=== PATIENT | male | born 1955 | race Caucasian/White ===

== ENCOUNTER 2023-08-22 10:55 | Outpatient (OUT) | payer MEDICARE, MEDICAID, SELFPAY ==
[2023-08-22 11:48] LABS: Prostate Specific Antigen Dx 0.24 ng/mL (<=4.00)
== END 2023-08-22 10:56 | disposition home or self-care (01) ==
LOC: LAB 10:55
PROVIDERS: PCP Family Medicine; Visit Provider Urology
DX: N40.1 Benign prostatic hyperplasia with lower urinary tract symptoms (principal)
CPT/HCPCS: 36415; 84153

== ENCOUNTER 2024-02-26 11:55 | Outpatient (OUT) | payer MEDICARE, MEDICAID, SELFPAY ==
--- OUTSIDE RECORDS SUMMARY | 2024-02-26 12:18 | XMS_ITS | CCD ---
Author Organization [facility] Care Team Providers Care Construction Recruiter Name Role Phone SAROJ PINEDA Primary Care Physician MACIE, DR SANCHEZ Attending Unavailable MACIE, DR SANCHEZ Consulting Unavailable RAVI, DR SANCHEZ Admitting Unavailable JUNIOR PERAZA Primary Care Unavailable Edwin FAMILY ADVOCATE-PROPELLER TESTERSaroj Primary Care Provid er SAROJ PINEDA Referring Unavailable SAROJ PINEDA Primary Care Unavailable SAROJ PINEDA Attending Unavailable SAROJ PINEDA Referring Unavailable SAROJ PINEDA Primary Care Unavailable MAINE MORLEY Attending Unavailable SAROJ PINEDA Referring Unavailable SAROJ PINEDA Primary Care Unavailable MAINE MORLEY Attending Unavailable MAINE MORLEY Referring Unavailable SAROJ PINEDA Primary Care Unavailable Raheem RAVI Attending Unavailable SAROJ PINEDA Primary Care Unavailable SAROJ PINEDA Primary Care Unavailable Raheem RAVI Attending Unavailable SAROJ PINEDA Primary Care Unavailable Raheem RAVI Attending Unavailable Allergies Allergy Classification Reported Allergen(s) Allergy Type Date of Onset Reaction(s) Facility (1 source) No Known Medication Allergies; Translations: [No Known Medication Allergies] Propensity to adverse reactions (disorder) [facility] Repository Medications Current Medications Medication Drug Class(es) Dates Sig (Normalized) Sig (Original) acetaminophen 500 mg oral tablet (1 source) Start: 08-30-2022 take 2 tablets by mouth every six hours as needed for pain acetaminophen (TYLENOL EXTRA STRENGTH) 500 mg tablet Take 2 tablets (1,000 mg total) by mouth every 6 (six) hours as needed for pain. 30 tablet 0 08/30/2022 Active aspirin 325 mg delayed release oral tablet (3 sources) Platelet Aggregation Inhibitor, Nonsteroidal Anti-inflammatory Drug Start: 01-18-2021 take 1 tablet by mouth once daily aspirin 325 mg EC tablet Take 1 tablet (325 mg total) by mouth daily. 0 01/18/2021 Active Start: 05-17-2019 aspirin 81 mg Chew Tab mg tab(s), Chewed, Daily, Refills(s) 0 Start Date: 05/17/19 Status: Ordered atorvastatin 20 mg oral tablet (3 sources) HMG-CoA Reductase Inhibitor Start: 06-26-2023 atorvastatin 20 mg T ab Refills(s) 0 Start Date: 08/22/23 Status: Ordered Start: 05-17-2019 take 1 tablet by rick th once daily Lipitor 40 mg Tab 40 mg = 1 tab(s), Oral, Daily, # 30 tab(s), Refills(s) 0 Start Date: 05/17/19 Status: Ordered bacitracin zinc 0.5 unt/mg topical ointment (1 source) Start: 09-02-2022 bacitracin zinc ointment Apply 1 application topically in the morning and 1 application before bedtime. 120 g 0 09/02/2022 Active docusate sodium 100 mg oral capsule (1 source) Start: 06-26-2023 take 1 capsule by mouth in the morning for constipation, then take 1 capsule by mouth at bedtime for constipation docusate sodium (COLACE) 100 mg capsule Indications: Drug-induced constipation Take 1 capsule (100 mg total) by mouth in the morning and 1 capsule (100 mg total) before bedtime. For constipation. 180 capsule 1 06/26/2023 Active ferrous sulfate 325 mg delayed release oral tablet (3 sources) Start: 08-09-2021 take 1 tablet by mouth once daily at breakfast ferrous sulfate 325 (65 FE) mg EC tablet TAKE 1 TABLET BY MOUTH EVERY DAY WITH BREAKFAST 90 tablet 2 12/08/2022 Active finasteride 5 mg oral tablet (3 sources) 5-alpha Reductase Inhibitor Start: 02-09-2024 take 1 tablet by mouth once daily finasteride 5 mg Tab 5 mg = 1 tab(s), Oral, Daily, # 90 tab(s), Refills(s) 3, Pharmacy: [id number], 170, cm, 02/09/24 12:22:00 EDT, Height/Length Dosing, 125, kg, 02/09/24 12:22:00 EDT, Weight Dosing Start Date: 02/09/24 Status: Ordered Start: 08-19-2022 take 1 tablet by rick th once daily finasteride 5 mg Tab 5 mg = 1 tab(s), Oral, Daily, # 90 tab(s), Refills(s) 3, Pharmacy: [id number], 170, cm, 08/19/22 13:33:00 EST, Height/Length Dosing, 124, kg, 08/19/22 13:33:00 EST, Weight Dosing Start Date: 08/19/22 Status: Ordered hydroCHLOROthiazide 25 mg oral tablet (2 sources) Thiazide Diuretic Start: 05-17-2019 take 1 mg by mouth once daily hydrochlorothiazide 25 mg oral tablet mg tab(s), Oral, Daily, Refills(s) 0 Start Date: 05/17/19 Status: Ordered ibuprofen 800 mg oral tablet (2 sources) Nonsteroidal Anti-inflammator y Drug Start: 10-12-2023 take 1 tablet by mouth every twelve hours as needed for pain ibuprofen (MOTRIN) 800 mg tablet Indications: Primary osteoarthritis involving multiple joints TAKE 1 TABLET BY MOUTH EVERY 12 HOURS NEEDED FOR PAIN 180 tablet 1 10/12/2023 Active Start: 03-04-2023 End: 10-12-2023 take 1 tablet by mouth once as needed for pain ibuprofen (MOTRIN) 800 mg tablet Indications: Primary osteoarthritis involving multiple joints TAKE 1 TABLET BY MOUTH EVERY TWELVE HOURS NEEDED FOR PAIN 180 tablet 1 03/04/2023 10/12/2023 Discontinued Levetiracetam (3 sources) Start: 05-17-2019 levetiracetam Refills(s) 0 Start Date: 05/17/19 Status: Ordered take 1 tablet by rick th in the morning, then take 1 tablet by mouth at bedtime levETIRAcetam (KEPPRA) 500 mg tablet Nate e 1 tablet (500 mg total) by mouth in the morning and 1 tablet (500 mg total) before bedtime. 0 Active LORazepam 0.5 mg oral tablet (3 sources) Benzodiazepine Start: 09-19-2021 LORazepam (ATI VAN) 0.5 mg tablet Start: 05-17-2019 take 2 tablets by mo uth three times daily LORazepam 0.5 mg Tab mg tab(s), Oral, TID, Refills(s) 0 Start Date: 05/17/19 Status: Ordered PARoxetine hydrochloride 20 mg oral tablet (3 sources) Serotonin Reuptake Inhibitor Start: 05-17-2019 take 1 tablet by mouth once daily Paxil 20 mg Tab enob tab(s), Oral, Daily, Refills(s) 0 Start Date: 05/17/19 Status: Ordered PHENobarbital 64.8 mg oral tablet (4 sources) Start: 01-17-2021 take 1 tablet by mouth once daily PHENobarbitaL (LUMINAL) 64.8 mg tablet Indications: Other epilepsy without status epilepticus, not intractable ([facility]) Take 1 tablet (64.8 mg total) by mouth nightly. 0 01/17/2021 Active Start: 05-17-2019 take 1 mg by mouth twice daily phenobarbital 32.4 mg oral tablet mg tab(s), Oral, BID, Refills(s) 0 Start Date: 05/17/19 Status: Ordered 24 hr propranolol hydrochloride 60 mg extended release oral capsule (2 sources) beta-Adrenergic Zaina Start: 05-17-2019 take 1 mg by mouth once daily Inderal LA 60 mg Cap-ER mg cap(s), Oral, Daily, Refills(s) 0 Start Date: 05/17/19 Status: Ordered stool softener (2 sources) Start: 08-09-2021 stool softener stool softener Start Date: 08/09/21 Status: Ordered tamsulosin hydrochloride 0.4 mg oral capsule (3 sources) alpha-Adrenergic Zaina Start: 02-09-2024 take 1 capsule by mouth twice daily tamsulosin 0.4 mg Cap 0.4 mg = 1 cap(s), Oral, BID, # 180 cap(s), Refills(s) 3, Pharmacy: [id number], 170, cm, 02/09/24 12:22:00 EDT, Height/Length Dosing, 125, kg, 02/09/24 12:22:00 EDT, Weight Dosing Start Date: 02/09/24 Status: Ordered Start: 08-19-2022 take 1 capsule by mo [facility] twice daily tamsulosin 0.4 mg Cap 0.4 mg = 1 cap(s), Oral, BID, # 180 cap(s), Refills(s) 3, Pharmacy: [id number], 170, cm, 08/19/22 13:33:00 EST, Height/Length Dosing, 124, kg, 08/19/22 13:33:00 EST, Weight Dosing Start Date: 08/19/22 Status: Ordered Start: 08-09-2021 tamsulosin (FL OMAX) 0.4 mg capsule Take by mouth daily. 0 08/09/2021 Active Problems Active Problems Problem Classification Problem Date Documented Date Episodic/Chronic Acute cerebrovascular disease (3 sources) Cerebrovascular accident; Translations: [Cerebral infarction, unspecified] Onset: 09-23-2008 Resolved: 02-13-2022 02-13-2022 Chronic Anxiety disorders (3 sources) Anxiety; Translations: [Anxiety disorder, unspecified] Onset: 06-26-2023 03-20-2019 Chronic Calculus of urinary tract (3 sources) Kidney stone; Translations: [Calculus of kidney] Onset: 02-13-2022 Resolved: 02-13-2022 03-20-2019 Episodic Deficiency and other anemia (2 sources) Iron deficiency anemia, unspecified; Translations: [Iron deficiency anemia, unspecified] Onset: 12-24-2023 Episodic Developmental disorders (1 source) Intellectual disability; Translations: [Unspecified intellectual disabilities] Onset: 03-06-2020 03-06-2020 Chronic Disorders of lipid metabolism (3 sources) Hyperlipidemia; Translations: [Hyperlipidemia, unspecified] Onset: 03-01-2020 03-01-2020 Chronic Epilepsy; convulsions (5 sources) Epilepsy; Translations: [Epileptic seizures related to external causes, not intractable, without status epilepticus] Onset: 03-06-2020 03-20-2019 Chronic Essential hypertension (4 sources) Hypertensive disorder; Translations: [Benign essential hypertension] Onset: 01-11-2005 03-20-2019 Chronic Genitourinary symptoms and ill-defined conditions (2 sources) Post-micturition incontinence 03-20-2019 Chronic Genitourinary symptoms and ill-defined conditions (11 sources) Delay when starting to pass urine; Translations: [Increased frequency of urination] Onset: 06-26-2023 03-20-2019 Episodic Hyperplasia of prostate (9 sources) Benign prostatic hypertrophy with outflow obstruction; Translations: [Benign prostatic hyperplasia with lower urinary tract symptoms] Onset: 03-06-2020 Chronic Hypertension with complications and secondary hypertension (1 source) Hypertensive left ventricular hypertrophy; Translations: [Hypertensive heart disease without heart failure] Onset: 03-06-2020 03-06-2020 Chronic Inflammatory conditions of male genital organs (2 sources) Prostatitis; Translations: [Inflammatory disease of prostate, unspecified] Onset: 02-09-2024 Episodic Mood disorders (3 sources) Depressive disorder; Translations: [Depression] 03-20-2019 Chronic Osteoarthritis (3 sources) Arthritis; Translations: [Degenerative joint disease involving multiple joints] 03-20-2019 Chronic Other circulatory disease (2 sources) Other disorders of arteries, arterioles and capillaries in diseases classified elsewhere; Translations: [Other disorders of arteries, arterioles and capillaries in diseases classified elsewhere] Onset: 01-12-2024 Chronic Other circulatory disease (2 sources) Other specified symptoms and signs involving the circulatory and respiratory systems; Translations: [Other specified symptoms and signs involving the circulatory and respiratory systems] Onset: 01-12-2024 Episodic Other nutritional; endocrine; and metabolic disorders (2 sources) Body mass index 40+ - severely obese 03-20-2019 Chronic Other nutritional; endocrine; and metabolic disorders (2 sources) Morbid obesity 03-20-2019 Chronic Other screening for suspected conditions (not mental disorders or infectious disease) (2 sources) Patient encounter status; Translations: [Encounter for screening for malignant neoplasm of colon] Onset: 06-28-2023 06-28-2023 Episodic Paralysis (2 sources) Cerebral palsy; Translations: [Cerebral palsy, unspecified] Onset: 01-11-2005 06-25-2022 Chronic Residual codes; unclassified (1 source) Sleep apnea; Translations: [Sleep apnea, unspecified] Onset: 08-21-2011 02-13-2022 Chronic Residual codes; unclassified (2 sources) Family history of ischemic heart disease and other diseases of the circulatory system; Translations: [Family history of ischemic heart disease and other diseases of the circulatory system] Onset: 01-12-2024 Episodic Screening and history of mental health and substance abuse codes (2 sources) Ex-smoker 03-20-2019 Episodic Unclassified (1 source) New Patient Onset: 01-12-2024 Unclassified (1 source) Patient encounter status 08-22-2023 Past or Other Problems Problem Classification Problem Date Documented Da te Episodic/Chronic Fracture of lower limb (1 source) Closed trimalleolar fracture of left ankle; Translations: [Displaced trimalleolar fracture of left lower leg, initial encounter for closed fracture] Onset: 01-07-2021 Resolved: 02-13-2022 02-13-2022 Episodic Mood disorders (1 source) Mood disorders Onset: 06-26-2023 06-26-2023 Other and unspecified benign neoplasm (1 source) Polyp of transverse colon; Translations: [Polyp of colon] Onset: 07-04-2023 07-04-2023 Episodic Other gastrointestinal disorders (1 source) Drug-induced constipation; Translations: [Drug induced constipation] Onset: 03-01-2020 03-01-2020 Episodic Other gastrointestinal disorders (1 source) Drug induced constipation; Translations: [Drug induced constipation] Onset: 03-01-2020 Episodic Other injuries and conditions due to external causes (1 source) Frostbite; Translations: [Superficial frostbite of unspecified sites, initial encounter] Onset: 09-10-2022 06-26-2023 Episodic Residual codes; unclassified (1 source) History of surgical procedure on vein; Translations: [Other specified postprocedural states] Onset: 01-11-2005 02-13-2022 Episodic Unclassified (1 source) Onset: 06-26-2023 06-26-2023 Results Test Name Value Interpretation Reference Range Facility Patient Education 02-09-20 Patient Education Urology Benign Prostatic Hyperplasia Benign prostatic hyperplasia (BPH) is an enlarged prostate gland that is caused by the normal aging process. The prostate may get bigger as a man gets older. The condition is not caused by cancer. The prostate is a walnut-sized gland that is involved in the production of semen. It is located in front of the rectum and below the bladder. The bladder stores urine. The urethra carries stored urine out of the body. An enlarged prostate can press on the urethra. This can make it harder to pass urine. The buildup of urine in the bladder can cause infection. Back pressure and infection may progress to bladder damage and kidney (renal) failure. What are the causes? This condition is part of the normal aging process. However, not all men develop problems from this condition. If the prostate enlarges away from the urethra, urine flow will not be blocked. If it enlarges toward the urethra and compresses it, there will be problems passing urine. What increases the risk? This condition is more likely to develop in men older than 50 years. What are the signs or symptoms? Symptoms of this condition include: ? Getting up often during the night to urinate. ? Needing to urinate frequently during the day. ? Difficulty starting urine flow. ? Decrease in size and strength of your urine stream. ? Leaking (dribbling) after urinating. ? Inability to pass urine. This needs immediate treatment. ? Inability to completely empty your bladder. ? Pain when you pass urine. This is more common if there is also an infection. ? Urinary tract infection (UTI). How is this diagnosed? This condition is diagnosed based on your medical history, a physical exam, and your symptoms. Tests will also be done, such as: ? A post-void bladder scan. This measures any amount of urine that may remain in your bladder after you finish urinating. ? A digital rectal exam. In a rectal exam, your health care provider checks your prostate by putting a lubricated, gloved finger into your rectum to feel the back of your prostate gland. This exam detects the size of your gland and any abnormal lumps or growths. ? An exam of your urine (urinalysis). ? A prostate specific antigen (PSA) screening. This is a blood test used to screen for prostate cancer. ? An ultrasound. This test uses sound waves to electronically produce a picture of your prostate gland. Your health care provider may refer you to a specialist in kidney and prostate diseases (urologist). How is this treated? Once symptoms begin, your health care provider will monitor your condition (active surveillance or watchful waiting). Treatment for this condition will depend on the severity of your condition. Treatment may include: ? Observation and yearly exams. This may be the only treatment needed if your condition and symptoms are mild. ? Medicines to relieve your symptoms, including: ? Medicines to shrink the prostate. ? Medicines to relax the muscle of the prostate. ? Surgery in severe cases. Surgery may include: ? Prostatectomy. In this procedure, the prostate tissue is removed completely through an open incision or with a laparoscope or robotics. ? Transurethral resection of the prostate (TURP). In this procedure, a tool is inserted through the opening at the tip of the penis (urethra). It is used to cut away tissue of the inner core of the prostate. The pieces are removed through the same opening of the penis. This removes the blockage. ? Transurethral incision (TUIP). In this procedure, small cuts are made in the prostate. This lessens the prostate's pressure on the urethra. ? Transurethral microwave thermotherapy (TUMT). This procedure uses microwaves to create heat. The heat destroys and removes a small amount of prostate tissue. ? Transurethral needle ablation (TUNA). This procedure uses radio frequencies to destroy and remove a small amount of prostate tissue. ? Interstitial laser coagulation (ILC). This procedure uses a laser to destroy and remove a small amount of prostate tissue. ? Transurethral electrovaporization (TUVP). This procedure uses electrodes to destroy and remove a small amount of prostate tissue. ? Prostatic urethral lift. This procedure inserts an implant to push the lobes of the prostate away from the urethra. Follow these instructions at home: ? Take [id number] and prescription medicines only as told by your health care provider. ? Monitor your symptoms for any changes. Contact your health care provider with any changes. ? Avoid drinking large amounts of liquid before going to bed or out in public. ? Avoid or reduce how much caffeine or alcohol you drink. ? Give yourself time when you urinate. ? Keep all follow-up visits. This is important. Contact a health care provider if: ? You have unexplained back pain. ? Your symptoms do not get better with treatment. ? You develop side effects from the medicine (more content not included)... Normal [facility] Reminderson 02-09-2024 Reminders - From: Kat Boateng To: ABIGAIL Ravi; Sent: 02/09/2024 14:27:35 EDT Show up: 08/10/2024 13:27:00 EST Subject: PSA in 6 mos Reminder Message Pt needs to get a PSA done in 6 mos (due 08/2024). Has f/u 02/07/25. Normal [facility] Urology Office/Clinic Noteon 02-09-2024 Urology Office/Clinic Note Chief Complaint BPH with obstruction HPI Staff 5 month f/u Dx: BPH with obstruction/LUTS and prostatitis Flomax 0.4mg increased to bid at last OV Finasteride 5 mg qd Pt states that he has been out of his Flomax and Finasteride for a few months and did not call the office for refills. States that he needs them today. Pt was given a 3 week course of Doxycycline 100mg bid at last OV for prostatitis. Dysuria: no Incomplete bladder emptying: no Hematuria: no Frequency: every few hours Urgency: no Nocturia: 1-4x depending on what he drinks Stream: pt states it depends on how much and what he is drinking. No straining Leaking: no Post void dripping: no Wearing pads/ Depends: no Urge incontinence: no Stress incontinence: no Incontinence without Sensory Awareness: no Abdominal pain: no Flank pain: no Sexual complaints: no History of Present Illness Tests reviewed: reviewed UA I have reviewed the previous health record information and history for this patient from Dr. Ravi. I have reviewed and verified the staff HPI to be accurate for this encounter. Review of Systems PHQ Score Initial Depression Screen Score: 0 SCORE ROS - Provider Constitutional: denies weight loss, denies hot flashes. Eyes: denies eye problems. Gastrointestinal: denies nausea, denies vomiting. Cardiovascular: denies chest pain or angina. Integumentary: no dryness Musculoskeletal: denies musculoskeletal symptoms. ENMT: denies otolaryngeal symptoms. Respiratory: no shortness of breath. Heme/Lymph: denies easy bleeding tendency, denies easy bruising tendency. Psychiatric: no confusion, no anxiety. Genitourinary: See HPI. Physical Exam Vitals & Measurements T: 36.9 ?C(Temporal Artery) HR: 80(Peripheral) RR: 16 BP: 128/84 HT: 67 in HT: 170 cm WT: 125 kg WT: 275 lb BMI: 43.25 General Appearance: alert, no distress, well nourished, well developed male. Assessment/Plan 1. BPH with obstruction/lower urinary tract symptoms (N40.1: Benign prostatic hyperplasia with lower urinary tract symptoms) Was taking Flomax 0.4mg bid (increased from qd at prior OV) and Finasteride 5mg qd but pt ran out of refills so has not been taking these meds for a few months. Advised pt to call our office for refills in the future. States sxs vary based on intake of tea/pop. Denies any bother with sxs. -Restart Flomax 0.4mg bid and Finasteride 5mg qd. Refills sent to [facility] in [place]. -F/u in 1 year 2. Screening PSA (prostate specific antigen) (Z12.5: Encounter for screening for malignant neoplasm of prostate) PSA: 04/25/20 - 0.35 (0.7) 08/24/21 - 0.3 (0.6) 08/19/22 - 0.19 (0.38) 08/22/23 - 0.24 (0.48) -Pt to get PSA done in 08/2024, order provided today. Will call pt with results. 3. Prostatitis (N41.9: Inflammatory disease of prostate, unspecified) Tx'd w/ Doxycycline 100mg bid x 3 wks at prior OV. UA today negative for blood and infection. Follow-up With When Contact Information MACIE FRANCISCO, Raheem Simmons, [facility] [address], [place] [address] [phone] Additional Instructions: f/u in 1 year (PSA in 6 mos) Patient Education Benign Prostatic Hyperplasia I, Kat Boateng, personally scribed for Dr. Ravi on 02/09/2024 13:26:02. . Documentation recorded by the scribe, Kat Boateng, accurately reflects the services(s) I performed and decisions made by me. Authenticated by Dr. Ravi on 02/09/2024 13:27:37. Problem List/Past Medical History Ongoing Anxiety Arthritis BMI 40.0-44.9, adult BPH with obstruction/lower urinary tract symptoms Depression Epilepsy Former smoker Hesitancy Hypertension Kidney stones Microscopic hematuria Morbid obesity Nocturia Post-void dribbling Prostatitis Screening PSA (prostate specific antigen) Urinary frequency Weak urine stream Historical No qualifying data Procedure/Surgical History Urodynamics (03/04/2013), Cystoscopy (02/09/2013), Urodynamics (04/24/2011), Tonsillectomy. Medications aspirin 81 mg Chew Tab, Chewed, Daily atorvastatin 20 mg Tab ferrous sulfate 325 mg oral enteric coated tablet, Oral, Daily finasteride 5 mg Tab, 5 mg= 1 tab(s), Oral, Daily, 3 refills hydrochlorothiazide 25 mg oral tablet, Oral, Daily Inderal LA 60 mg Cap-ER, Oral, Daily levetiracetam LORazepam 0.5 mg Tab, Oral, TID Paxil 20 mg Tab, enob tab(s), Oral, Daily phenobarbital 32.4 mg oral tablet, Oral, BID stool softener tamsulosin 0.4 mg Cap, 0.4 mg= 1 cap(s), Oral, BID, 3 refills Allergies No Known Medication Allergies Social History Alcohol - Denies Alcohol Use, 05/17/2019 Substance Abuse - Denies Substance Abuse, 06/26/2020 Tobacco - Medium Risk, 06/26/2020 Never (less than 100 in lifetime) Tobacco Use:. Smokeless tobacco user within last 30 days Smokeless Tobacco Use:. Oral, Household tobacco concerns: No. Yes, 02/09/2024 Former smoker, quit more than 30 days ago To (more content not included)... Normal [facility] Comment on above: Result Comment: Elec tronically Signed By: Raheem RAVI MD\.br\Date and Time Signed: 02/09/24 13:27 EDT\.br\Electronically Co-Signed By: Kat Boateng\.br\Date and Time Co-Signed: 02/09/24 13:26 EDT FERRITINon 12-24-2023 Ferritin [Mass/Vol] 220 ng/mL Normal 24-336 [facility] Comment on above: Performed By: #### F EPR, 2276-4 #### [facility] ([id number]) [address], [address] [place] [address] IRON PROFILEon 12-24-2023 Iron [Mass/Vol] 112 ug/dL Normal 50-212 [facility] Comment on above: Performed By: #### F EPR, 2276-4 #### [facility] ([id number]) [address], [address] [place] [address] IRON BINDING 277 ug/dL Normal 250-425 [facility] Comment on above: Performed By: #### F EPR, 2276-4 #### [facility] ([id number]) [address], [address] [place] [address] IRON SATURATION 40 % SATURATION Normal 20-50 [facility] Comment on above: Performed By: #### F [facility] [facility], [id number] #### [facility] ([id number]) [address] [facility], [address] [place] [address] Lab Reportson 08-25-2023 Lab Reports [id number] [facility] Ambulatory Visit Summaryon 1 10-23-2022 Ambulatory Visit Summary ROMEO LARIOS :1955 Visit Date:08/22/2023 Ambulatory Visit Instructions Your Diagnosis BPH with obstruction/lower urinary tract symptoms Screening PSA (prostate specific antigen) Prostatitis Tests Performed Urnls Dip Stick Auto w/o Microscopy POC [id number] Your Care Team Attending Physician - Raheem RAVI MD Primary Care Physician - SAROJ PINEDA CNP This Is Your Medications List doxycycline (doxycycline hyclate 100 mg Tab) finasteride (finasteride 5 mg Tab) tamsulosin (tamsulosin 0.4 mg Cap) Contact prescribing physician if questions or concerns Non-Formulary Medication (stool softener) aspirin (aspirin 81 mg Chew Tab) atorvastatin (atorvastatin 20 mg Tab) ferrous sulfate (ferrous sulfate 325 mg oral enteric coated tablet) hydrochlorothiazide (hydrochlorothiazide 25 mg oral tablet) levetiracetam lorazepam (LORazepam 0.5 mg Tab) paroxetine (Paxil 20 mg Tab) phenobarbital (phenobarbital 32.4 mg oral tablet) propranolol (Inderal LA 60 mg Cap-ER) Procedures Performed Urodynamics (03/04/2013), Cystoscopy (02/09/2013), Urodynamics (04/24/2011), Tonsillectomy. Discharge Vitals Heart Rate (Peripheral) 61 Respiratory Rate 16 Blood Pressure 138/77 Height 170 cm Height 67 in Weight 125.9 kg Weight 276.98 lb BMI 43.56 What to do next Scheduled Follow-Up Appointments Friday 11:30 AM EDT With: Raheem RAVI MD Where: [facility] Patient Educationon 08-22-20 Patient Education Obstetrics and Gynec ology Urinary Tract Infection, Adult A urinary tract infection (UTI) is an infection of any part of the urinary tract. The urinary tract includes the kidneys, ureters, bladder, and urethra. These organs make, store, and get rid of urine in the body. An upper UTI affects the ureters and kidneys. A lower UTI affects the bladder and urethra. What are the causes? Most urinary tract infections are caused by bacteria in your genital area around your urethra, where urine leaves your body. These bacteria grow and cause inflammation of your urinary tract. What increases the risk? You are more likely to develop this condition if: ? You have a urinary catheter that stays in place. ? You are not able to control when you urinate or have a bowel movement (incontinence). ? You are female and you: ? Use a spermicide or diaphragm for control. ? Have low estrogen levels. ? Are . ? You have certain genes that increase your risk. ? You are sexually active. ? You take antibiotic medicines. ? You have a condition that causes your flow of urine to slow down, such as: ? An enlarged prostate, if you are male. ? Blockage in your urethra. ? A kidney stone. ? A nerve condition that affects your bladder control (neurogenic bladder). ? Not getting enough to drink, or not urinating often. ? You have certain medical conditions, such as: ? Diabetes. ? A weak disease-fighting system (immunesystem). ? Sickle cell disease. ? Gout. ? Spinal cord injury. What are the signs or symptoms? Symptoms of this condition include: ? Needing to urinate right away (urgency). ? Frequent urination. This may include small amounts of urine each time you urinate. ? Pain or burning with urination. ? Blood in the urine. ? Urine that smells bad or unusual. ? Trouble urinating. ? Cloudy urine. ? Vaginal discharge, if you are female. ? Pain in the abdomen or the lower back. You may also have: ? Vomiting or a decreased appetite. ? Confusion. ? Irritability or tiredness. ? A fever or chills. ? Diarrhea. The first symptom in older adults may be confusion. In some cases, they may not have any symptoms until the infection has worsened. How is this diagnosed? This condition is diagnosed based on your medical history and a physical exam. You may also have other tests, including: ? Urine tests. ? Blood tests. ? Tests for STIs (sexually transmitted infections). If you have had more than one UTI, a cystoscopy or imaging studies may be done to determine the cause of the infections. How is this treated? Treatment for this condition includes: ? Antibiotic medicine. ? Eolh-ytq-lwvacvk medicines to treat discomfort. ? Drinking enough water to stay hydrated. If you have frequent infections or have other conditions such as a kidney stone, you may need to see a health care provider who specializes in the urinary tract (urologist). In rare cases, urinary tract infections can cause sepsis. Sepsis is a life-threatening condition that occurs when the body responds to an infection. Sepsis is treated in the hospital with IV antibiotics, fluids, and other medicines. Follow these instructions at home: Medicines ? Take mxmo-yhd-nlkcdvh and prescription medicines only as told by your health care provider. ? If you were prescribed an antibiotic medicine, take it as told by your health care provider. Do not stop using the antibiotic even if you start to feel better. General instructions ? Make sure you: ? Empty your bladder often and completely. Do not hold urine for long periods of time. ? Empty your bladder after sex. ? Wipe from front to back after urinating or having a bowel movement if you are female. Use each tissue only one time when you wipe. ? Drink enough fluid to keep your urine pale yellow. ? Keep all follow-up visits. This is important. Contact a health care provider if: ? Your symptoms do not get better after 1?2 days. ? Your symptoms go away and then return. Get help right away if: ? You have severe pain in your back or your lower abdomen. ? You have a fever or chills. ? You have nausea or vomiting. Summary ? A urinary tract infection (UTI) is an infection of any part of the urinary tract, which includes the kidneys, ureters, bladder, and urethra. ? Most urinary tract infections are caused by bacteria in your genital area. ? Treatment for this condition often includes antibiotic medicines. ? If you were prescribed an antibiotic medicine, take it as told by your health care provider. Do not stop using the antibiotic even if you start to feel better. ? Keep all follow-up visits. This is important. This information is not intended to replace advice given to you by your health care provider. Make sure you discuss any questions you have with your health care provider. Document Revised: 04/06/2021 Document Revie (more content not included)... Normal [facility] Office/Clinic Noteon 08-22-2023 Urology Office/Clinic Note Chief Complaint BPH with obstruction/LUTS HPI Staff 1yr PSA DX: BPH *Tamsulosin 0.4mg increased from QD to BID at time of last encounter. & Continues Finasteride 5mg QD therapy. PSA 08/19/22- 0.19 08/22/23- 0.24 Dysuria: no Incomplete bladder emptying: no Hematuria: no Frequency: yes but pt state he is drinking large amounts of water and tea throughout the day Urgency: yes Nocturia: 1-2x Stream: no straining but some intermittency Leaking: no Post void dripping: very little Wearing pads/ Depends: no Urge incontinence: no Stress incontinence: no Incontinence without Sensory Awareness: no Abdominal pain: only if he holds his urine too long Flank pain: no Sexual complaints: no History of Present Illness Tests reviewed: reviewed UA and PSA. I have reviewed the previous health record information and history for this patient from Dr. Ravi. I have reviewed and verified the staff HPI to be accurate for this encounter. There have been no associated fever, chills, flank pain, or blood in the urine. Denies any urinary infections since last encounter. Review of Systems PHQ Score Initial Depression Screen Score: 0 SCORE General Appearance: alert, no distress, well nourished, well developed male. Genitourinary: normal scrotum, normal testes, normal urethra, normal epididymis, normal vas deferens/spermatic cord. Flank Pain: none. Bladder: nonpalpable. Physical Exam Vitals & Measurements HR: 61(Peripheral) RR: 16 BP: 138/77 HT: 67 in HT: 170 cm WT: 125.9 kg WT: 276.98 lb BMI: 43.56 ROS - Provider Constitutional: denies weight loss, denies hot flashes. Eyes: denies eye problems. Gastrointestinal: denies nausea, denies vomiting. Cardiovascular: denies chest pain or angina. Integumentary: no dryness Musculoskeletal: denies musculoskeletal symptoms. ENMT: denies otolaryngeal symptoms. Respiratory: no shortness of breath. Heme/Lymph: denies easy bleeding tendency, denies easy bruising tendency. Psychiatric: no confusion, no anxiety. Genitourinary: See HPI. Assessment/Plan 1. BPH with obstruction/lower urinary tract symptoms (N40.1: Benign prostatic hyperplasia with lower urinary tract symptoms) Taking Flomax 0.4mg qd and Finasteride 5mg qd. Slow stream but empties well. No hesitancy. Intermittent nocturia. It was discussed at last visit to increase Flomax to BID, however pt states he did not know he was supposed to increase dosage. -Increase Flomax to bid 2. Screening PSA (prostate specific antigen) (Z12.5: Encounter for screening for malignant neoplasm of prostate) PSA: 04/25/20 - 0.35 (0.7) 08/24/21 - 0.3 (0.6) 08/19/22 - 0.19 (0.38) 08/22/23 - 0.24 (0.48) -Cont annual prostate cancer screening 3. Prostatitis (N41.9: Inflammatory disease of prostate, unspecified) Foul smelling urine. One episode of dysuria. UA today shows trace-intact blood, + nitrates and small leuks. Will hold off on DOYLE today due to infection. Will check DOYLE in 3 months. -Start Doxycycline 100mg bid x 3 weeks -Call if sx do not improve after abx course -Follow up in 3 months Follow-up With When Contact Information MACIE FRANCISCO, Raheem Simmons, [address] [place] [address]- Additional Instructions: 3 months Patient Education Urinary Tract Infection, Adult I, Darshana Fang, personally scribed for Dr. Ravi on 08/22/2023 12:26:57. . Documentation recorded by the scribDarshana bower, accurately reflects the services(s) I performed and decisions made by me. Authenticated by Dr. Ravi on 08/22/2023 12:29:55. Problem List/Past Medical History Ongoing Anxiety Arthritis BMI 40.0-44.9, adult BPH with obstruction/lower urinary tract symptoms Depression Epilepsy Former smoker Hesitancy Hypertension Kidney stones Microscopic hematuria Morbid obesity Nocturia Post-void dribbling Prostatitis Screening PSA (prostate specific antigen) Urinary frequency Weak urine stream Historical No qualifying data Procedure/Surgical History Urodynamics (03/04/2013), Cystoscopy (02/09/2013), Urodynamics (04/24/2011), Tonsillectomy. Medications aspirin 81 mg Chew Tab, Chewed, Daily atorvastatin 20 mg Tab ferrous sulfate 325 mg oral enteric coated tablet, Oral, Daily finasteride 5 mg Tab, 5 mg= 1 tab(s), Oral, Daily, 3 refills hydrochlorothiazide 25 mg oral tablet, Oral, Daily Inderal LA 60 mg Cap-ER, Oral, Daily levetiracetam LORazepam 0.5 mg Tab, Oral, TID Paxil 20 mg Tab, enob tab(s), Oral, Daily phenobarbital 32.4 mg oral tablet, Oral, BID stool softener tamsulosin 0.4 mg Cap, 0.4 mg= 1 cap(s), Oral, BID, 3 refills Allergies No Known Medication Allergies Social History Alcohol - Denies Alcohol Use, 05/17/2019 Substance Abuse - Denies Substance Abuse, 06/26/2020 Tobacco - Medium Risk, 06/26/2020 Former smoker, quit more than 30 days ago Tobacco Use:., (more content not included)... Normal [facility] Comment on above: Result Comment: Elec tronically Signed By: Raheem RAVI MD\.br\Date and Time Signed: 08/22/23 12:30 EST\.br\Electronically Co-Signed By: Darshana Fang.shady\Date and Time Co-Signed: 08/22/23 12:27 EST Vital Signs Date Time Vital Sign Value Performing Clinician Facility 02-09-2024 12:10-0400 Blood Pressure Location Raheem RAVI [facility] 02-09-2024 12:10-0400 Body temperature 98.42 [degF] Raheem RAVI [facility] 02-09-2024 12:10-0400 Diastolic blood pressure 84 mm[Hg] [facility] 02-09-2024 12:10-0400 Heart rate 80 /min Raheem RAVI [facility] 02-09-2024 12:10-0400 Respiratory rate 16 /min Raheem RAVI [facility] 02-09-2024 12:10-0400 Systolic blood pressure 128 mm[Hg] Raheem RAVI [facility] 08-19-2022 13:32-0500 Blood Pressure Location Raheem RAVI [facility] 08-19-2022 13:32-0500 Diastolic blood pressure 78 mm[Hg] Raheem RAVI [facility] 08-19-2022 13:32-0500 Heart rate 61 /min Raheem RAVI [facility] 08-19-2022 13:32-0500 Systolic blood pressure 135 mm[Hg] Raheem RAVI [facility] Encounters Encounter Date Encounter Type Care Provider Facility Start: 02-07-2025 ambulatory Raheem Choudhuryi ty:[facility] Start: 02-09-2024 End: 02-09-2024 ambulatory SAROJ PINEDA Facility:[facility] Start: 02-09-2024 End: 02-09-2024 Patient encounter procedure Raheem RAVI [facility] Start: 01-27-2024 End: 01-28-2024 ambulatory [place] [facility] Start: 01-12-2024 End: 01-12-2024 ambulatory MAINE G [facility] Start: 12-24-2023 End: 12-25-2023 ambulatory [facility] Start: 12-24-2023 End: 12-24-2023 ambulatory [facility] Start: 10-11-2023 Refill Saroj ibarra FAMILY ADVOCATE-PROPELLER TESTER Work Phone: [facility] Comment on above: 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 Start: 08-22-2023 End: 08-22-2023 ambulatory SAROJ NETTLESILLO Facility:[facility] Start: 08-19-2022 End: 08-20-[address] RAHEEM RAVI Facility: Start: 08-19-2022 End: 08-19-2022 Patient encounter procedure Raheem RAVI [facility] Procedures Date Procedure Procedure Detail Performing Clinician Start: 07-04-2023 Colonoscopy Saroj roy FAMILY ADVOCATE-PROPELLER TESTER Work Phone: Start: 06-26-2023 Adult depression scr eening assessment Saroj Pineda FAMILY ADVOCATE-PROPELLER TESTER Work Phone: Start: 08-19-[address] GARTH RAVI Comment on above: Performed By: #### P SAD #### [facility] [address] [place] [address] Dr. Rhonda Juarez Start: 03-04-2013 Urodynamic studies Estevan RAVI Start: 02-09-2013 Cystoscopy Raheem COHEN Comment on above: 04/24/11 Start: 04-24-2011 Urodynamic studies Estevan RAVI Tonsillectomy Raheem RAVI Plan of Treatment Date Care Activity Detail Author Start: 07-04-2033 Screening for malignant neoplasm of colon Colonoscopy [facility] Start: 08-30-2032 DTaP,Tdap and Td Vaccines (2 - Td or Tdap) DTaP,Tdap and Td Vaccines (2 - Td or Tdap) [facility] Start: 07-04-2024 Adult BMI Screening Adult BMI Screening [facility] Start: 07-04-2024 Tobacco Screening Tobacco Screening [facility] Start: 06-26-2024 Adult BMI Follow Up Plan Adult BMI Follow Up Plan [facility] Start: 06-26-2024 Depression Screening Depression Screening [facility] Start: 06-26-2024 Fall Risk Screening Fall Risk Screening [facility] Start: 06-26-2024 Medicare Annual Wellness Visit Medicare Annual Wellness Visit [facility] Start: 12-24-2023 End: 12-24-2023 Patient encounter procedure 12/24/2023 11:30 AM EDT Office Visit [facility] [address] [place] [phone] Saroj Pineda APRN-PROPELLER TESTER [address] [place] [phone] [facility] Start: 11-17-2023 End: 11-17-2023 Patient encounter procedure 11/17/2023 10:45 AM EDT Office Visit [facility] [address] [place] [phone] Maine Morley MD [address] [place] [address], [address] [place] [address] [facility] Start: 2006 Administration of varicella zoster vaccine Zoster (Shingles) Vaccine (1 of 2) [facility] Start: 1955 Tobacco Counseling Tobacco Counseling [facility] Immunizations Immunization Date Immunization Notes Care Provider Fa cility 06-26-2023 Influenza Vaccine, Quadrivalent, Adjuvanted Saroj Pineda FAMILY ADVOCATE[employer]ELLER TESTER Work Phone: [facility] 08-30-2022 tetanus toxoid, redu wanda diphtheria toxoid, and acellular pertussis vaccine, adsorbed Saroj Pineda FAMILY ADVOCATE-PROPELLER TESTER [facility] 06-25-2022 Influenza Vaccine, Quadrivalent, Adjuvanted Saroj Pineda FAMILY ADVOCATE-PROPELLER TESTER [facility] 06-21-2021 influenza, injectabl e, quadrivalent, preservative free Saroj Pineda FAMILY ADVOCATE-PROPELLER TESTER [facility] 10-16-2020 influenza, injectabl e, quadrivalent, preservative free Saroj Pineda FAMILY ADVOCATE-PROPELLER TESTER [facility] Payers Date Payer Category Payer Medicaid MEDICAID [facility] EDICAID [id number] 2020-Present [phone] [address] [place] [address] [id number] 1982 Medicare MEDICARE MEDICAR E PART A & B [id number] 1982-Present [phone] [address] [place] [address] [id number] 1959 Medicaid [id number] 1959 Medicare [id number] 1955 Unknown [id number] 1955 Unknown [id number] 1955 Unknown [id number] 1955 Unknown [id number] 1955 Unknown [id number] 1955 Unknown [id number] 1955 Unknown [id number] 1955 Unknown [id number] 1955 Unknown [id number] Social History Date Type Detail Facility Start: 08-09-2021 End: 07-03-2023 Tobacco smoking status Ex-smoker (finding) [facility] Start: 12-15-2019 End: 10-16-2020 Sex Assigned At Male [facility] History of tobacco use Current smoker [facility] Start: 07-03-2023 Tobacco use and exposure User of smokeless tobacco [facility] History of tobacco use Chews Tobacco [facility] Start: 07-07-2023 Alcohol intake Lifetime non-d samantha (finding) [facility] Start: 12-15-2019 End: 10-16-2020 History of Social function [facility] Frequency of Alcohol Consumption Never [facility] Start: 1955 Sex Assigned At Not on file P [facility] Start: 02-09-2024 Tobacco smoking status Never s moked tobacco (finding) [facility] Medical Equipment Procedure Code Equipment Code Equipment Origin al Text Equipment Identifier Dates Wr Crlge 1.25mm 600mm Eye Ss - Sna - [id number] Start: 01-08-2021 Plt Bn 92mm 4 Hl Va Lcp Lt - Sna - [id number] Start: 01-08-2021 Scr Bn 50mm 3.5m m 6mm St Sm - Sna - [id number] Start: 01-08-2021 Goals Date Patient Goal Desired Activity /State Personal health goal Comment on above: Formatting of this n ote might be different from the original. Evaluation of progress towards goal: Safe dc transition from hospital to SNF for rehab then return home with family support. Functional Status Date Assessment Result Facility 02-09-2024 Functional Status N/A [facility] 08-19-2022 Functional Status N/A [facility] Hospital Discharge instructions 02-09-2024 Note Date & Type Note Facility 02-09-2024 Hospital Discharge instructions Patient Education 02/09/2024 13:22:54 Benign Prostatic Hyperplasia Benign Prostatic Hyperplasia Benign prostatic hyperplasia (BPH) is an enlarged prostate gland that is caused by the normal aging process. The prostate may get bigger as a man gets older. The condition is not caused by cancer. The prostate is a walnut-sized gland that is involved in the production of semen. It is located in front of the rectum and below the bladder. The bladder stores urine. The urethra carries stored urine out of the body. An enlarged prostate can press on the urethra. This can make it harder to pass urine. The buildup of urine in the bladder can cause infection. Back pressure and infection may progress to bladder damage and kidney (renal) failure. What are the causes? This condition is part of the normal aging process. However, not all men develop problems from this condition. If the prostate enlarges away from the urethra, urine flow will not be blocked. If it enlarges toward the urethra and compresses it, there will be problems passing urine. What increases the risk? This condition is more likely to develop in men older than 50 years. What are the signs or symptoms? Symptoms of this condition include: Getting up often during the night to urinate. Needing to urinate frequently during the day. Difficulty starting urine flow. Decrease in size and strength of your urine stream. Leaking (dribbling) after urinating. Inability to pass urine. This needs immediate treatment. Inability to completely empty your bladder. Pain when you pass urine. This is more common if there is also an infection. Urinary tract infection (UTI). How is this diagnosed? This condition is diagnosed based on your medical history, a physical exam, and your symptoms. Tests will also be done, such as: A post-void bladder scan. This measures any amount of urine that may remain in your bladder after you finish urinating. A digital rectal exam. In a rectal exam, your health care provider checks your prostate by putting a lubricated, gloved finger into your rectum to feel the back of your prostate gland. This exam detects the size of your gland and any abnormal lumps or growths. An exam of your urine (urinalysis). A prostate specific antigen (PSA) screening. This is a blood test used to screen for prostate cancer. An ultrasound. This test uses sound waves to electronically produce a picture of your prostate gland. Your health care provider may refer you to a specialist in kidney and prostate diseases (urologist). How is this treated? Once symptoms begin, your health care provider will monitor your condition (active surveillance or watchful waiting). Treatment for this condition will depend on the severity of your condition. Treatment may include: Observation and yearly exams. This may be the only treatment needed if your condition and symptoms are mild. Medicines to relieve your symptoms, including: ?Medicines to shrink the prostate. ?Medicines to relax the muscle of the prostate. Surgery in severe cases. Surgery may include: ?Prostatectomy. In this procedure, the prostate tissue is removed completely through an open incision or with a laparoscope or robotics. ?Transurethral resection of the prostate (TURP). In this procedure, a tool is inserted through the opening at the tip of the penis (urethra). It is used to cut away tissue of the inner core of the prostate. The pieces are removed through the same opening of the penis. This removes the blockage. ?Transurethral incision (TUIP). In this procedure, small cuts are made in the prostate. This lessens the prostate's pressure on the urethra. ?Transurethral microwave thermotherapy (TUMT). This procedure uses microwaves to create heat. The heat destroys and removes a small amount of prostate tissue. ?Transurethral needle ablation (TUNA). This procedure uses radio frequencies to destroy and remove a small amount of prostate tissue. ?Interstitial laser coagulation (ILC). This procedure uses a laser to destroy and remove a small amount of prostate tissue. ?Transurethral electrovaporization (TUVP). This procedure uses electrodes to destroy and remove a small amount of prostate tissue. ?Prostatic urethral lift. This procedure inserts an implant to push the lobes of the prostate away from the urethra. Follow these instructions at home: Take xhaq-rcm-drgiyqm and prescription medicines only as told by your health care provider. Monitor your symptoms for any changes. Contact your health care provider with any changes. Avoid drinking large amounts of liquid before going to bed or out in public. Avoid or reduce how much caffeine or alcohol you drink. Give yourself time when you urinate. Keep all follow-up visits. This is important. Contact a health care provider if: You have unexplained back pain. Your symptoms do not get better with treatment. You develop side effects from the medicine you are taking. Your urine becomes very dark or has a bad smell. Your lower abdomen becomes distended and you have trouble passing urine. Get help right away if: You have a fever or chills. You suddenly cannot urinate. You feel light-headed or very dizzy, or you faint. There are large amounts of blood or clots in your urine. Your urinary problems become hard to manage. You develop moderate to severe low back or flank pain. The flank is the side of your body between the ribs and the hip. These symptoms may be an emergency. Get help right away. Call 911. Do not wait to see if the symptoms will go away. Do not drive yourself to the hospital. Summary Benign prostatic hyperplasia (BPH) is an enlarged prostate that is caused by the normal aging process. It is not caused by cancer. An enlarged prostate can press on the urethra. This can make it hard to pass urine. This condition is more likely to develop in men older than 50 years. Get help right away if you suddenly cannot urinate. This information is not intended to replace advice given to you by your health care provider. Make sure you discuss any questions you have with your health care provider. Document Revised: 03/13/2022 Document Reviewed: 03/13/2022 [employer] Patient Education 2022 [email or web address]. Follow Up Care 08/22/2023 12:38:05 With:MACIE FRANCISCO, Raheem Simmons, URL Address: [facility] [address] , [place] [address]- [phone] When: Unknown Comments:f/u in 1 year (PSA in 6 mos) [facility] Hospital Discharge instructions 08-19-2022 Note Date & Type Note Facility 08-19-2022 Hospital Discharge instructions Patient Education 08/19/2022 08:53:15 Benign Prostatic Hyperplasia Benign Prostatic Hyperplasia Benign prostatic hyperplasia (BPH) is an enlarged prostate gland that is caused by the normal aging process and not by cancer. The prostate is a walnut-sized gland that is involved in the production of semen. It is located in front of the rectum and below the bladder. The bladder stores urine and the urethra is the tube that carries the urine out of the body. The prostate may get bigger as a man gets older. An enlarged prostate can press on the urethra. This can make it harder to pass urine. The build-up of urine in the bladder can cause infection. Back pressure and infection may progress to bladder damage and kidney (renal) failure. What are the causes? This condition is part of a normal aging process. However, not all men develop problems from this condition. If the prostate enlarges away from the urethra, urine flow will not be blocked. If it enlarges toward the urethra and compresses it, there will be problems passing urine. What increases the risk? This condition is more likely to develop in men over the age of 50 years. What are the signs or symptoms? Symptoms of this condition include: Getting up often during the night to urinate. Needing to urinate frequently during the day. Difficulty starting urine flow. Decrease in size and strength of your urine stream. Leaking (dribbling) after urinating. Inability to pass urine. This needs immediate treatment. Inability to completely empty your bladder. Pain when you pass urine. This is more common if there is also an infection. Urinary tract infection (UTI). How is this diagnosed? This condition is diagnosed based on your medical history, a physical exam, and your symptoms. Tests will also be done, such as: A post-void bladder scan. This measures any amount of urine that may remain in your bladder after you finish urinating. A digital rectal exam. In a rectal exam, your health care provider checks your prostate by putting a lubricated, gloved finger into your rectum to feel the back of your prostate gland. This exam detects the size of your gland and any abnormal lumps or growths. An exam of your urine (urinalysis). A prostate specific antigen (PSA) screening. This is a blood test used to screen for prostate cancer. An ultrasound. This test uses sound waves to electronically produce a picture of your prostate gland. Your health care provider may refer you to a specialist in kidney and prostate diseases (urologist). How is this treated? Once symptoms begin, your health care provider will monitor your condition (active surveillance or watchful waiting). Treatment for this condition will depend on the severity of your condition. Treatment may include: Observation and yearly exams. This may be the only treatment needed if your condition and symptoms are mild. Medicines to relieve your symptoms, including: ?Medicines to shrink the prostate. ?Medicines to relax the muscle of the prostate. Surgery in severe cases. Surgery may include: ?Prostatectomy. In this procedure, the prostate tissue is removed completely through an open incision or with a laparoscope or robotics. ?Transurethral resection of the prostate (TURP). In this procedure, a tool is inserted through the opening at the tip of the penis (urethra). It is used to cut away tissue of the inner core of the prostate. The pieces are removed through the same opening of the penis. This removes the blockage. ?Transurethral incision (TUIP). In this procedure, small cuts are made in the prostate. This lessens the prostate's pressure on the urethra. ?Transurethral microwave thermotherapy (TUMT). This procedure uses microwaves to create heat. The heat destroys and removes a small amount of prostate tissue. ?Transurethral needle ablation (TUNA). This procedure uses radio frequencies to destroy and remove a small amount of prostate tissue. ?Interstitial laser coagulation (ILC). This procedure uses a laser to destroy and remove a small amount of prostate tissue. ?Transurethral electrovaporization (TUVP). This procedure uses electrodes to destroy and remove a small amount of prostate tissue. ?Prostatic urethral lift. This procedure inserts an implant to push the lobes of the prostate away from the urethra. Follow these instructions at home: Take jnig-vjy-dhmputi and prescription medicines only as told by your health care provider. Monitor your symptoms for any changes. Contact your health care provider with any changes. Avoid drinking large amounts of liquid before going to bed or out in public. Avoid or reduce how much caffeine or alcohol you drink. Give yourself time when you urinate. Keep all follow-up visits as told by your health care provider. This is important. Contact a health care provider if: You have unexplained back pain. Your symptoms do not get better with treatment. You develop side effects from the medicine you are taking. Your urine becomes very dark or has a bad smell. Your lower abdomen becomes distended and you have trouble passing your urine. Get help right away if: You have a fever or chills. You suddenly cannot urinate. You feel lightheaded, or very dizzy, or you faint. There are large amounts of blood or clots in the urine. Your urinary problems become hard to manage. You develop moderate to severe low back or flank pain. The flank is the side of your body between the ribs and the hip. These symptoms may represent a serious problem that is an emergency. Do not wait to see if the symptoms will go away. Get medical help right away. Call your local emergency services (911 in the [place] Do not drive yourself to the hospital. Summary Benign prostatic hyperplasia (BPH) is an enlarged prostate that is caused by the normal aging process and not by cancer. An enlarged prostate can press on the urethra. This can make it hard to pass urine. This condition is part of a normal aging process and is more likely to develop in men over the age of 50 years. Get help right away if you suddenly cannot urinate. This information is not intended to replace advice given to you by your health care provider. Make sure you discuss any questions you have with your health care provider. Document Released: 08/25/2006 Document Revised: 07/20/2019 Document Reviewed: 09/29/2017 [employer] Patient Education 2020 [email or web address]. Follow Up Care 08/09/2021 12:15:30 With:Raheem RAVI MD, URL Address: [facility] [address] [place] [address]- When: Unknown [facility] Evaluation + Plan note Note Date & Type Note Facility Evaluation + Plan note Future Appointments Appointment Date:08/22/2023 11:15:00 AM Scheduled Provider:Raheem RAVI MD Location:[facility] Appointment Type:URO Office Visit Diagnostic Tests PendingPSA Total 08/19/22PSA Total 08/19/22 [facility] Evaluation + Plan note Note Date & Type Note Facility Evaluation + Plan note Future Appointments Appointment Date:02/07/2025 12:15:00 PM Scheduled Provider:Raheem RAVI MD Location:[facility] Appointment Type:URO Office Visit Diagnostic Tests PendingPSA Screen, Total 02/09/24 [facility] Evaluation note Note Date & Type Note Facility Evaluation note Diagnosis Primary osteoarthritis involving multiple joints documented in this encounter [facility] Hospital course Narrative Note Date & Type Note Facility Hospital course Narrative No data available for this section [facility] Instructions Note Date & Type Note Facility Instructions Not on filedocumented in this en counter [facility] Progress note Note Date & Type Note Facility Progress note No data available for this section [facility] Summary Purpose Family History No Family History Records FoundNo Family History Records FoundNo Family History Records FoundNo Family History Records Found No data available for this section No Family History Records Found Advance Directives No Advanced Directives Records FoundLatest Code Status on File Code Status Date Activated Date Inactivated Comments Full Code 01/07/2021 6:38 PM 01/18/2021 12:36 AM Additional Source Comments Patient Care team informatio n (unrecognized section and content) 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 Start Date End Date Saroj Pineda, FAMILY ADVOCATE-PROPELLER TESTER [address], [place] [address] PCP - General Family Medicine 02/24/20 (unrecognized sect ion and content) No Status Records FoundNo Status Records FoundNo Status Records FoundNo Status Records FoundNo Status Records Found INFORMATION SOURCE (unrecogn ized section and content) DATE CREATED AUTHOR 08/30/2022 [facility] DATE CREATED AUTHOR AUTHOR'S ORGANIZ ATION 12/26/2023 [facility] DATE CREATED AUTHOR AUTHOR'S ORGANIZ ATION 01/13/2024 [facility] DATE CREATED AUTHOR AUTHOR'S ORGANIZ ATION 01/29/2024 [facility] DATE CREATED AUTHOR AUTHOR'S ORGANIZ ATION 02/10/2024 [facility] Reason for Visit (unrecogniz ed section and content) Reason Comments Med Refill FOR RECORDS PERTAINING TO PATIENTS WHO ARE OR HAVE BEEN ENROLLED IN A CHEMICAL DEPENDENCY/SUBSTANCEABUSE PROGRAM, SOME INFORMATION MAY BE OMITTED. This clinical summary was aggregated from multiple sources. Caution should be exercised in using it in the provision of clinical care. This summary normalizes information from multiple sources, and as a consequence, information in this document may materially change the coding, format and clinical context of patient data. In addition, data may be omitted in some cases. CLINICAL DECISIONS SHOULD BE BASED ON THE PRIMARY CLINICAL RECORDS. [facility] [employer] [facility]. provides no warranty or guarantee of the accuracy or completeness of information in this document.
[2024-02-26 12:58] LABS: Basophils Absolute Auto 0.1 10^3/uL (0.0-0.1); Basophils Percent Auto 1.1 % (0.2-2.0); Eosinophils Absolute Auto 0.1 10^3/uL (0.0-0.7); Eosinophils Percent Auto 1.9 % (0.9-7.0); Hematocrit 38.9 % (42.0-54.0); Hemoglobin 12.7 g/dL (14.0-18.0); Immature Granulocytes Abs Auto 0.01 10^3/uL (0.00-0.03); Immature Granulocytes Pct Auto 0.2 % (0.0-0.5); Lymphocytes Percent Auto 31.3 % (20.5-60.0); Mean Corpuscular HGB Conc 32.6 g/dL (29.9-35.2); Mean Corpuscular Hemoglobin 30.4 pg (25.9-34.0); Mean Corpuscular Volume 93.1 fL (80.0-94.0); Mean Platelet Volume 8.9 fL (9.5-13.5); Monocytes Absolute Auto 0.5 10^3/uL (0.3-0.8); Monocytes Percent Auto 7.6 % (1.7-12.0); Neutrophils Absolute Auto 3.6 10^3/uL (1.4-6.5); Neutrophils Percent Auto 57.9 % (43.0-75.0); Platelet Count 259 10^3/uL (150-450); Red Blood Count 4.18 10^6/uL (4.70-6.10); Red Cell Distribution Width 12.8 % (11.0-15.0); White Blood Count 6.3 10^3/uL (4.0-11.0)
[2024-02-26 13:18] LABS: Alanine Aminotransferase 23 U/L (16-63); Albumin Globulin Ratio 1.2; Albumin Level 3.8 g/dL (3.4-5.0); Alkaline Phosphatase 126 U/L (46-116); Anion Gap 10.5; Aspartate Amino Transferase 15 U/L (15-37); BUN Creatinine Ratio 9.8; Bilirubin Total 0.3 mg/dL (0.2-1.0); Calcium 8.7 mg/dL (8.5-10.1); Carbon Dioxide 31.4 mmol/L (21.0-32.0); Chloride 105 mmol/L (98-107); Estimated GFR (African America >60 (>=60); Estimated GFR (Non-African Ame >60 (>=60); Globulin 3.1 g/dL; Glucose 97 mg/dL (74-106); Potassium 4.9 mmol/L (3.5-5.1); Sodium 142 mmol/L (136-145); Total Protein 6.9 g/dL (6.4-8.2)
[2024-02-27 04:08] LABS: Phenobarbital, Serum 32 ug/mL (15-40)
== END 2024-02-26 11:56 | disposition home or self-care (01) ==
LOC: LAB 11:58
PROVIDERS: PCP Nurse Practitioner; Visit Provider Nurse Practitioner Family
DX: Z51.81 Encounter for therapeutic drug level monitoring (principal)
CPT/HCPCS: 36415; 80053; 80184; 85025